=== PATIENT | male | born 1995 | race Hispanic/Latino ===

== ENCOUNTER 2017-02-15 17:28 | Emergency (ER) | payer OTHER ==
[2017-02-15 17:39] VITALS: BP 109/61; PULSE 73; RESP 18; TEMP 98; O2SAT 100
[2017-02-15] MEDS ORDERED: Sodium Chloride 0.9% 1,000 ML IV STA ×3 (17:57→20:35)
[2017-02-15 18:25] LABS: BASO % 0.4 % (0.0-2.0); EOS # 0.1 K/uL (0.0-0.7); EOS % 1.3 % (0.0-4.0); HEMATOCRIT 39.8 % (35.0-51.0); LYMPH # 2.5 K/uL (1.0-4.3); MEAN CELL VOLUME 90.6 fl (80.0-94.0); MEAN CORPUSCULAR HEMOGLOBIN 30.4 pg (27.0-31.0); MEAN CORPUSCULAR HGB CONC 33.5 g/dL (33.0-37.0); MEAN PLATELET VOLUME 8.6 fl (7.2-11.7); MONO # 0.5 K/uL (0.0-0.8); MONO % 6.5 % (0.0-10.0); NEUT # 4.6 K/uL (1.8-7.0); NEUT % 59.8 % (50.0-75.0); RED CELL DISTRIBUTION WIDTH 12.3 % (11.5-14.5); WHITE BLOOD COUNT 7.7 K/uL (4.8-10.8)
[2017-02-15 18:33] LABS: ALB/GLOB RATIO 1.9 (1.0-2.1); ALCOHOL SERUM < 10 mg/dl (0-10); ALKALINE PHOSPHATASE 61 U/L (38-126); ALT/SGPT 42 U/L (21-72); AST/SGOT 37 U/L (17-59); BILIRUBIN,TOTAL 0.9 mg/dl (0.2-1.3); BLOOD UREA NITROGEN 11 mg/dl (9-20); CALCIUM 8.6 mg/dL (8.4-10.2); CARBON DIOXIDE 21 mmol/L (22-30); CHLORIDE 92 mmol/L (98-107); GFR AFRICAN-AMERICAN > 60; GLUCOSE,RANDOM 108 mg/dL (75-110); POTASSIUM 3.1 MMOL/L (3.6-5.0); SODIUM 127 mmol/l (132-148); TOTAL PROTEIN 6.5 G/DL (6.3-8.2)
[2017-02-15] MEDS ORDERED: Potassium Chloride 20 mEq ER Tab PO STA (18:45)
--- NOTE | 2017-02-15 19:19 | ED PDOC ---
HPI: Abdomen Time Seen by Provider: 02/15/17 17:54 Chief Complaint (Nursing): GI Problem Chief Complaint (Provider): Vomiting and mild abdominal pain History Per: Patient History/Exam Limitations: no limitations Onset/Duration Of Symptoms: Hrs Associated Symptoms: denies: Fever Additional Complaint(s): Patient is a 22 y/o male with past surgical history of an appendectomy and no past medical history, who presents to the ED complaining of nasuea, vomiting and minimal mild abdominal pain since earlier today. Patient reports that he drank a lot last night and denies any fever or associated symptoms. PMD: [place] Past Medical History Reviewed: Historical Data, Nursing Documentation, Vital Signs Vital Signs: Last Vital Signs Temp 98.0 F 02/15/17 17:37 Pulse 73 02/15/17 17:37 Resp 18 02/15/17 17:37 BP 109/61 02/15/17 17:37 Pulse Ox 100 02/16/17 03:13 - Medical History PMH: No Chronic Diseases - Surgical History Surgical History: Appendectomy - Family History Family History: States: No Known Family Hx - Social History Current smoker - smoking cessation education provided: Yes (Light smoker, < 10 cigarettes daily) Alcohol: Social Drugs: Denies - Home Medications Home Medications: Ambulatory Orders Medication Instructions Recorded Ondansetron ODT [Zofran ODT] 4 mg PO Q6 PRN #16 odt 02/15/17 - Allergies Allergies/Adverse Reactions: Allergies Allergy/AdvReac Type Severity Reaction Status Date / Time cefezil Allergy RASH Uncoded 02/15/17 17:37 Review of Systems ROS Statement: Except As Marked, All Systems Reviewed And Found Negative Constitutional: Negative for: Fever Gastrointestinal: Positive for: Nausea, Vomiting, Abdominal Pain (mild abdominal pain) Physical Exam - Reviewed Nursing Documentation Reviewed: Yes Vital Signs Reviewed: Yes - Physical Exam Appears: Positive for: No Acute Distress Head Exam: Positive for: ATRAUMATIC, NORMOCEPHALIC Skin: Positive for: Normal Color, Warm, Dry Eye Exam: Positive for: Normal appearance, EOMI, PERRL Neck: Positive for: Normal, Painless ROM, Supple Cardiovascular/Chest: Positive for: Regular Rate, Rhythm. Negative for: Murmur Respiratory: Positive for: Normal Breath Sounds. Negative for: Respiratory Distress Gastrointestinal/Abdominal: Positive for: Normal Exam, Soft. Negative for: Tenderness Back: Positive for: Normal Inspection. Negative for: L CVA Tenderness, R CVA Tenderness, Vertebral Tenderness Extremity: Positive for: Normal ROM. Negative for: Tenderness, Pedal Edema Neurologic/Psych: Positive for: Alert, Oriented (x3). Negative for: Motor/ Sensory Deficits - Laboratory Results Result Diagrams: 02/15/17 18:10 02/15/17 18:10 - ECG O2 Sat by Pulse Oximetry: 100 (RA) Pulse Ox Interpretation: Normal Medical Decision Making Medical Decision Making: Time: 17:57 Initial Impression: Gastritis, status-post alcohol consumption Initial Plan: -Alcohol Serum -CMP -CBC -Sodium Chloride 0.9% 1000ml, IV 1000mls/hr -Ondasteron 4mg IV Time: 18:42 -Magnesium -Potassium Chloride 40 meq PO -Sodium Chloride 0.9% 1000ml, IV 1000mls/hr Time: 19:15 -Patient signed out by me to Dr. Mujica Scribe Attestation: Documented by Yadira Garnica, acting as a scribe for Naomy Mckee MD Provider Scribe Attestation: All medical record entries made by the Scribe were at my direction and personally dictated by me. I have reviewed the chart and agree that the record accurately reflects my personal performance of the history, physical exam, medical decision making, and the department course for this patient. I have also personally directed, reviewed, and agree with the discharge instructions and disposition. Disposition - Clinical Impression Clinical Impression: Dehydration - Disposition Disposition: Transfer of Care Disposition Time: 19:15 Condition: IMPROVED Prescriptions: Ondansetron ODT [Zofran ODT] 4 mg PO Q6 PRN #16 odt PRN Reason: Nausea/Vomiting Instructions: Dehydration (ED) Forms: [employer] (Cam[place]onian) Patient Signed Over To: Johnny Mujica
--- NOTE | 2017-02-15 19:33 | ED PDOC ---
- Laboratory Results Result Diagrams: 02/15/17 18:10 02/15/17 18:10 - ECG O2 Sat by Pulse Oximetry: 100 (RA) Medical Decision Making Medical Decision Making: Time: 19:15 -Patient signed over to me by Dr. Mckee Time: 21:18 -Patient reports feeling improved and requests to be discharged home Diagnosis: Dehydration Patient Condition: Improved Scribe Attestation: Documented by Yadira Garnica, acting as a scribe for Johnny Mujica MD Provider Scribe Attestation: All medical record entries made by the Scribe were at my direction and personally dictated by me. I have reviewed the chart and agree that the record accurately reflects my personal performance of the history, physical exam, medical decision making, and the department course for this patient. I have also personally directed, reviewed, and agree with the discharge instructions and disposition. Disposition - Clinical Impression Clinical Impression: Dehydration - POA Present On Arrival: None - Disposition Disposition: Routine/Home Disposition Time: 21:18 Condition: IMPROVED Prescriptions: Ondansetron ODT [Zofran ODT] 4 mg PO Q6 PRN #16 odt PRN Reason: Nausea/Vomiting Instructions: Dehydration (ED) Forms: [employer] (Bengali)
[2017-02-15] MEDS ORDERED: Potassium Chloride 20 mEq ER Tab PO ONE (19:45)
== END 2017-02-15 21:30 | disposition home or self-care (01) ==
LOC: H.ER 17:28
DX: E86.0 Dehydration (principal)
CPT/HCPCS: 80053; 80320; 82948; 83735; 85025; 96361; 96374; 96376; 99282; J2405; J7040